=== PATIENT | male | born 1955 | race Caucasian/White ===

== ENCOUNTER 2025-01-01 15:54 | Emergency (ER) | payer MEDICARE, BC, SELFPAY ==
[2025-01-01 16:02] VITALS: BP 162/100
[2025-01-01 16:20] LABS: % Basophils 0.6 % (0-2); % Eosinophils 0.8 % (0-6); % Immature Granulocytes 0.5 % (0-0.5); % Lymphocytes 18.2 % (20.5-51.1); % Monocytes 7.8 % (1.7-9.3); % Neutrophils 72.1 % (42.2-75.2); Absolute Eosinophils 0.1 10^3/uL (0-0.7); Absolute Lymphocytes 1.2 10^3/uL (1.2-3.4); Absolute Monocytes 0.5 10^3/uL (0.1-0.6); Absolute Neutrophils 4.7 10^3/uL (1.4-6.5); Hematocrit 39.9 % (39.0-52.0); Hemoglobin 14.3 g/dL (13.0-18.0); Mean Corp Hgb Conc. 35.8 g/dL (33.0-37.0); Mean Platelet Volume 9.2 fL (7.4-10.4); Nucleated Red Blood Cells % 0 % (-); Platelet Count 170 10^3/uL (130-400); Red Cell Dist. Width 13.2 % (11.5-14.5); White Blood Cell Count 6.5 10^3/uL (4.8-10.8)
[2025-01-01 16:35] LABS: ALT (SGPT) 32 U/L (0-50); AST (SGOT) 34 U/L (17-59); Albumin 4.3 g/dl (3.5-5.0); Alkaline Phosphatase 71 U/L (38-126); Blood Urea Nitrogen 13 mg/dl (9-20); Calcium 9.6 mg/dl (8.4-10.2); Carbon Dioxide 27 mmol/L (22-30); Chloride 103 mmol/L (98-107); Glucose 105 mg/dl (70-99); Potassium 3.8 mmol/L (3.5-5.1); Sodium 138 mmol/L (135-145); Total Bilirubin 1.3 mg/dl (0.2-1.3); Total Protein 6.9 g/dl (6.3-8.2); eGFR > 60.00
[2025-01-01 17:13] LABS: Troponin I < 0.012 ng/ml
[2025-01-01 18:33] VITALS: BP 170/91
[2025-01-01 18:35] VITALS: BMI 35.4
[2025-01-01 18:54] LABS: Magnesium 1.6 mg/dl (1.6-2.3)
[2025-01-01 18:55] LABS: D-Dimer 0.34 ug/mlFEU (0.00-0.50)
[2025-01-01 19:00] VITALS: BP 167/93
[2025-01-01] MEDS: DECADRON 10 MG IV (19:03)
[2025-01-01] MEDS: DUONEB 3 ML INH (19:03)
[2025-01-01 19:04] LABS: NT-proBNP 419 pg/ml
--- NOTE | 2025-01-01 21:33 | ED.GENMED ---
History of Present Illness
General
Chief Complaint: Chest Pain
Source: patient
Exam Limitations: none
Time Seen by Provider: 01/01/25 17:31
Nursing documentation reviewed up to this point in time: agreed with
History of Present Illness
History of Present Illness:
Patient with history of COPD, presents to ED secondary to worsening shortness of breath at rest, but worse with exertion over the past 2 weeks. Patient denies chest pain. Denies nausea or vomiting. Patient reports intermittent coughing. Denies
fever or chills. Patient does report coming back from a cruise, where there was significant amount of food and alcohol consumption. However, patient states his symptoms started even prior to cruise. Denies leg pain, but with mild swelling.
Denies back pain. Denies recent surgery. Patient has been using his inhaler at home, without improvement in symptoms.
Review of Systems
Review of Systems
Allergies reviewed?: Yes
All Other Systems: ROS reviewed and negative except as documented in HPI and ROS
Constitutional: Reports no symptoms
EENT: Reports no symptoms
Respiratory: Reports cough and trouble breathing
Cardiac: Reports no symptoms; Denies chest pain
ABD/GI: Reports no symptoms; Denies vomiting or diarrhea
Musculoskeletal: Reports no symptoms
Skin: Reports no symptoms
Neurological: Reports no symptoms
Phy Exam
Physical Exam
Physical Exam:
Physical Exam
General: mild respiratory distress, not acutely ill. afebrile. overweight
Head: nc/at. eomi
Neck: supple. normal range of motion.
Heart: s1/s2 regular rate and rhythm, no murmur.
Lungs: mild respiratory distress. diminished breath sounds bilaterally
Abdomen: normal bowel sounds. not tender. no distention
Neuro: alert and oriented x 3. no focal neurological deficits
Skin: no rash
Psychiatric: well kept. interactive and cooperative
Extremities: no edema. no calf tenderness.
Scores
Heart Score for Chest Pain Patients
STEMI patient?: Not applicable
Course
Orders/Labs/Results
Orders:
Orders
01/01/25 15:55
ECG [Electrocardiogram (*1)] Urgent
Reason for Study: Chest Pain
01/01/25 15:56
EKG- Treatment ONCE
01/01/25 16:12
Complete Blood Count/With Diff Urgent
Comprehensive Metabolic Panel Urgent
Magnesium Urgent
Comment: ADDON
NT-proBNP Urgent
Comment: ADDON
Troponin I Urgent
01/01/25 18:23
Add On- LAB Urgent
Tests Added?: ProBNP, magnesium
Dexamethasone Sod Phosphate [Decadron] 10 mg IV NOW STA
Ipratropium/Albuterol Sulfate [Duoneb] 3 ml INH R NOW STA
01/01/25 18:32
D-Dimer Urgent
01/01/25 19:35
CR Chest - 2 Views Urgent
Comment:
Reason For Exam: sob
01/01/25 22:49
PRN Pain Medication Management As Directed
May give lesser potent ordered pain med per pt: Yes
preference::
Protocol:: Medication orders for pain may be administered in a
manner that supports deferring to patient preference
when the pt is:
- Requesting an ordered lesser potent pain medication.
Least to most potent pain medications are defined
as: acetaminophen < NSAID < tramadol < opioids
(morphine, oxycodone, hydromorphone).
- Requesting a lesser dose of the same medication IF
ORDERED.
- Requesting a less intrusive route of administration
if both routes are prescribed by the provider (PO <
IV).
01/01/25 22:51
Code Status As Directed
Resuscitation Status: Full Code
Abnormal Lab Results
01/01/25
16:12
RBC 4.20 L 10^6/uL
(4.70-6.10)
MCV 95.0 H fL
(80.0-94.0)
MCH 34.0 H pg
(27.0-31.0)
Lymphocytes % 18.2 L %
(20.5-51.1)
Glucose 105 H mg/dl
(70-99)
01/01/25 16:12
01/01/25 16:12
Vital Signs
Initial and Last Documented VS:
Initial Vital Signs
Temp Pulse Resp BP Pulse Ox
99.0 F 69 16 162/100 98
01/01/25 16:02 01/01/25 16:02 01/01/25 16:02 01/01/25 16:02 01/01/25 16:02
Last Documented Vital Signs
Temp Pulse Resp BP Pulse Ox
99.0 F 81 20 158/92 97
01/01/25 16:02 01/01/25 23:10 01/01/25 23:10 01/01/25 23:10 01/01/25 23:10
MDM/Problems Addressed
MDM/Problems Addressed:
During ambulation, patient noted to become short of breath with increased work of breathing. History and exam likely secondary to exacerbation of underlying COPD. However, pt without any desaturation or sig respiratory distress.
Pt evaluated by hospitalist who also feels that pt can be discharged home with close f/u with his primary law office manager. Pt agreeable to discharge, but will return with worsening symptoms
Chest x-ray: No acute findings. D-dimer negative.
*Critical Care Note
Total Time (30-74mins, 75-104mins- exclusive of procedures): Not Applicable
ED Attending Note
-
Portions of this chart may have been created with voice recognition software.� Occasional wrong word or��sound alike� substitutions may have occurred due to the inherent limitations of voice recognition software.
Discharge Plan
Departure
Patient Disposition: Home (Routine Discharge)
Date of Disposition: 01/01/25
Time of Disposition: 21:44
Admit to: Telemetry
Patient with high blood pressure during this ER visit?: Yes
Discharge Problem:
COPD exacerbation
Instructions: Chronic obstructive pulmonary disease (COPD)
Prescriptions:
New
albuterol sulfate [Ventolin HFA] 90 mcg/actuation HFA aerosol inhaler
2 puff inhalation Q4H PRN (Reason: shortness of breath or wheezing) Qty: 8.5 0RF
prednisone 50 mg Tablet
50 mg PO DAILY Qty: 3 0RF
No Action
fluticasone propion-salmeterol [Wixela Inhub] 250-50 mcg/dose Blister With Device
1 inh INHALATION DAILY
atorvastatin 20 mg Tablet
20 mg PO DAILY
metoprolol succinate 50 mg Tablet Extended Release 24 Hr
50 mg PO DAILY
lisinopril 20 mg Tablet
20 mg PO DAILY
omeprazole 40 mg Capsule,Delayed Release(Dr/Ec)
40 mg PO DAILY
albuterol 90 mcg/actuation Aerosol
90 mcg INHALATION DAILY PRN (Reason: sob)
cyanocobalamin (vitamin B-12) 1,000 mcg/mL Syringe
1,000 mcg MONTHLY
budesonide-formoterol 160-4.5 mcg/actuation Hfa Aerosol Inhaler
1 inh INHALATION DAILY
Referrals:
Melvin Berry DO [Family Provider] -
Activity Restrictions/Additional Instructions:
As discussed, please follow-up with your law office manager for further evaluation and treatment. In addition, in light of mild abnormal findings noted on EKG, does recommend consulting with your pipe organ mechanic.
Interventions
Interventions:
*Risk Screen - Suicide Last Done: 01/01/25 23:10
*General Assessment Last Done: 01/01/25 18:00
*Neglect/Abuse Screening Last Done: 01/01/25 18:00
*ED- Fall Risk Assessment Last Done: 01/01/25 23:10
*ED COVID-19 Vaccine History Last Done: 01/01/25 18:00
*Nursing Disposition Last Done: 01/01/25 23:10
ED- Cardiac Assessment Last Done: 01/01/25 18:00
Discharge Date and Time
Discharge Date/Time: 01/01/25 23:10
Print Language: POLISH
[2025-01-01 23:10] VITALS: BP 158/92
== END 2025-01-01 23:10 | disposition home or self-care (01) ==
LOC: EMR 15:54
PROVIDERS: EMERGENCY PHYSICIAN Emergency Medicine; FAMILY PHYSICIAN Family Medicine
DX: J44.1 Chronic obstructive pulmonary disease with (acute) exacerbation (principal)
CPT/HCPCS: 99283; 94640; 96374; 71046; 80053; 83735; 83880; 84484; 85025; 85379; 93005